=== PATIENT | female | born 1980 ===

== ENCOUNTER 2016-12-19 20:52 | Emergency (ER) | payer OTHER ==
[2016-12-19 20:52] VITALS: BMI 28.3
[2016-12-19 21:18] VITALS: RESP 20
[2016-12-19 21:50] LABS: RBC URINE < 1 /hpf (0-3); URINE BILIRUBIN NEGATIVE (NEGATIVE); URINE BLOOD NEGATIVE (NEGATIVE); URINE COLOR Straw (YELLOW); URINE GLUCOSE (UA) NORMAL (Normal); URINE KETONE NEGATIVE (NEGATIVE); URINE LEUKOCYTE ESTERASE NEG Leu/uL (Negative); URINE PROTEIN NEGATIVE (NEGATIVE); URINE UROBILINOGEN NORMAL mg/dL (0.2-1.0); WBC URINE < 1 /hpf (0-5)
[2016-12-19] MEDS ORDERED: Sodium Chloride 0.9% 1,000 ML IV ONE (22:47)
[2016-12-19] MEDS ORDERED: DiphenhydrAMINE 50 mg/ml Inj IVP STA (22:48)
--- NOTE | 2016-12-19 22:55 | C.PDOC ---
History Of Present Illness 36 year old female presents to the ED with complaints of left flank pain starting earlier today. pt also reports a puritic rash to b/l upper arms. no new lotions creams detergents, known allergens Patient states she has associated nausea and denies vomiting, hematuria, dysuria, fever, chills, or any other complaints at this time. Time Seen by Provider: 12/19/16 22:39 Chief Complaint (Nursing): Female Genitourinary History Per: Patient History/Exam Limitations: no limitations Onset/Duration Of Symptoms: Hrs Current Symptoms Are (Timing): Still Present Severity: Mild Past Medical History Reviewed: Historical Data, Nursing Documentation, Vital Signs Vital Signs: Last Vital Signs Temp 97.3 F L 12/20/16 01:33 Pulse 87 12/20/16 01:33 Resp 20 12/20/16 01:33 BP 105/63 12/20/16 01:33 Pulse Ox 99 12/20/16 01:33 Family History: States: Unknown Family Hx - Social History Hx Tobacco Use: No Hx Alcohol Use: No Hx Substance Use: No - Immunization History Hx Tetanus Toxoid Vaccination: No Hx Influenza Vaccination: No Hx Pneumococcal Vaccination: No Review Of Systems Except As Marked, All Systems Reviewed And Found Negative. Constitutional: Negative for: Fever, Chills Gastrointestinal: Positive for: Nausea. Negative for: Vomiting, Abdominal Pain , Diarrhea Genitourinary: Positive for: Other (+Left flank pain). Negative for: Dysuria, Frequency, Hematuria Skin: Negative for: Rash Physical Exam - Physical Exam Appears: Non-toxic, No Acute Distress Skin: Normal Color, Warm, Dry Head: Atraumatic, Normacephalic Eye(s): bilateral: Normal Inspection Oral Mucosa: Moist Chest: Symmetrical, No Deformity Cardiovascular: Rhythm Regular Respiratory: Normal Breath Sounds, No Accessory Muscle Use Gastrointestinal/Abdominal: Soft, Tenderness (+LLQ tenderness), No Distention, No Guarding, No Rebound Back: CVA Tenderness (+Left CVA tenderness) Neurological/Psych: Oriented x3, Normal Speech, Normal Cognition ED Course And Treatment - Laboratory Results Result Diagrams: 12/19/16 22:57 12/19/16 22:57 O2 Sat by Pulse Oximetry: 96 (Room air) Pulse Ox Interpretation: Normal - CT Scan/US CT Abd/Pel Other Rad Studies (CT/US): Interpreted By Me, Read By Radiologist CT/US Interpretation: EXAM: US Pelvis Complete. CLINICAL HISTORY: 36 years old, female; Abnormal findings; Abnormal imaging test; Additional info: Left adexal ttp. TECHNIQUE: Real-time pelvic ultrasound (complete) with image documentation. COMPARISON: No relevant prior studies available. FINDINGS: Uterus/cervix: The uterus measures 10.9 x 4.4 x 5.3 cm. The endometrial stripe measures 0.87 cm. in thickness. No myometrial mass. Right ovary: The right ovary measures 2.7 x 1.8 x 2.6 cm. Normal blood flow. Left ovary: The left ovary measures 3.7 x 2.8 x 3.7 cm. Normal blood flow. Free fluid: No free fluid. IMPRESSION: No acute findings. EXAM: US Pelvis, Transvaginal. CLINICAL HISTORY: 36 years old, female; Abnormal findings; Abnormal imaging test; Additional info: Left adexal ttp. TECHNIQUE:Real-time transvaginal pelvic ultrasound (complete) with image documentation. Transvaginal. imaging was used for better evaluation of the endometrium and adnexa. COMPARISON: No relevant prior studies available. FINDINGS: Uterus/cervix: The uterus measures 8.3 x 4.6 x 5.7 cm. The endometrial stripe measures 1.1 cm in. thickness. Nabothian cysts are incidentally noted. No myometrial mass. Right ovary: The right ovary measures 2.7 x 1.9 x 2.6 cm. Normal blood flow. Left ovary: The left ovary is not clearly visualized on transvaginal images. Free fluid: No free fluid. IMPRESSION: No acute findings. Pelvis US Other Rad Studies (CT/US): Read By Radiologist, Radiology Report Reviewed CT/US Interpretation: EXAM: US Pelvis Complete. CLINICAL HISTORY: 36 years old, female; Abnormal findings; Abnormal imaging test; Additional info: Left adexal ttp. TECHNIQUE: Real-time pelvic ultrasound (complete) with image documentation. COMPARISON: No relevant prior studies available. FINDINGS: Uterus/cervix: The uterus measures 10.9 x 4.4 x 5.3 cm. The endometrial stripe measures 0.87 cm. in thickness. No myometrial mass. Right ovary: The right ovary measures 2.7 x 1.8 x 2.6 cm. Normal blood flow. Left ovary: The left ovary measures 3.7 x 2.8 x 3.7 cm. Normal blood flow. Free fluid: No free fluid. IMPRESSION: No acute findings. . EXAM: US Pelvis, Transvaginal. CLINICAL HISTORY: 36 years old, female; Abnormal findings; Abnormal imaging test; Additional info: Left adexal ttp. TECHNIQUE: Real-time transvaginal pelvic ultrasound (complete) with image documentation. Transvaginal imaging was used for better evaluation of the endometrium and adnexa. COMPARISON: No relevant prior studies available. FINDINGS: Uterus/cervix: The uterus measures 8.3 x 4.6 x 5.7 cm. The endometrial stripe measures 1.1 cm in thickness. Nabothian cysts are incidentally noted. No myometrial mass. Right ovary: The right ovary measures 2.7 x 1.9 x 2.6 cm. Normal blood flow. Left ovary: The left ovary is not clearly visualized on transvaginal images. Free fluid: No free fluid. IMPRESSION: No acute findings. Medical Decision Making Medical Decision Making: Plan: -CT ABD & Pelvis w/o contrast -Blood work -Urinalysis -Benadryl -Toradol -Zofran -IV fluids -Reassess Progress: 107: pt reassesed. pain improved. rash resolved. noted luekocytosis. ua, ct, US neg, no pulm complaints. advised outpt f/u and return precautions Disposition - Disposition Referrals: Victor M Copeland MD [Staff Provider] - [facility] [Outside] [facility], [facility] Service [Outside] Disposition: HOME/ ROUTINE Disposition Time: 01:08 Condition: STABLE Additional Instructions: please see clinic and specialist. return to er with worsening symptoms or concerns. discuss results of your blood count with pmd, and specialist. Instructions: Acute Abdominal Pain (ED), Leukocytosis (ED) Forms: Work/School/Gym Excuse - Clinical Impression Clinical Impression: Abdominal pain, Leukocytosis - Scribe Statement The provider has reviewed the documentation as recorded by the Scribe Angelica Knowles. Provider Attestation: All medical record entries made by the Scribe were at my direction and personally dictated by me. I have reviewed the chart and agree that the record accurately reflects my personal performance of the history, physical exam, medical decision making, and the department course for this patient. I have also personally directed, reviewed, and agree with the discharge instructions and disposition.
[2016-12-19] MEDS ORDERED: Sodium Chloride 0.9% 1,000 ML ONE (22:58)
[2016-12-19] MEDS ORDERED: DiphenhydrAMINE 50 mg/ml Inj ONE (22:59)
[2016-12-19 23:00] LABS: BASO % 0.3 % (0.0-2.0); EOS # 0.1 K/uL (0.0-0.7); EOS % 0.9 % (0.0-4.0); HEMATOCRIT 35.6 % (34.0-47.0); LYMPH # 2.8 K/uL (1.0-4.3); LYMPH % 18.8 % (20.0-40.0); MEAN CELL VOLUME 86.8 fL (81.0-99.0); MEAN CORPUSCULAR HEMOGLOBIN 28.5 pg (27.0-31.0); MEAN CORPUSCULAR HGB CONC 32.8 g/dL (33.0-37.0); MEAN PLATELET VOLUME 9.5 fL (7.2-11.7); MONO # 0.8 K/uL (0.0-0.8); MONO % 5.4 % (0.0-10.0); RED CELL DISTRIBUTION WIDTH 13.2 % (11.5-14.5); WHITE BLOOD COUNT 14.9 K/uL (4.8-10.8)
[2016-12-19 23:10] LABS: CHLORIDE 99 mmol/L (98-107); SODIUM 136 mmol/L (132-148)
[2016-12-19 23:11] LABS: POTASSIUM 3.8 mmol/L (3.6-5.2)
[2016-12-19 23:12] LABS: GFR AFRICAN-AMERICAN > 60
[2016-12-19 23:13] LABS: ALB/GLOB RATIO 1.2 (1.0-2.1); ALKALINE PHOSPHATASE 68 U/L (38-126); ALT/SGPT 57 U/L (9-52); AST/SGOT 34 U/L (14-36); BILIRUBIN,TOTAL 0.2 mg/dL (0.2-1.3); BLOOD UREA NITROGEN 16 mg/dL (7-17); CALCIUM 8.7 mg/dl (8.6-10.4); CARBON DIOXIDE 21 mmol/L (22-30); GLUCOSE,RANDOM 113 mg/dL (65-105); TOTAL PROTEIN 7.5 g/dL (6.3-8.3)
[2016-12-20 01:34] VITALS: BP 105/63; PULSE 87; TEMP 97.3
--- NOTE | 2016-12-20 08:55 | US ---
HISTORY: left adexal ttp COMPARISON: None available. TECHNIQUE: Transabdominal and transvaginal pelvic ultrasound was performed. FINDINGS: UTERUS: Measures 9.6 x 4.4 x 5.5 cm. Anteverted, normal in size and appearance. No fibroid or other mass lesion seen. ENDOMETRIUM: Measures 10 mm in diameter. Unremarkable. CERVIX: Nabothian cysts are visualized. RIGHT OVARY: Measures 2.7 x 1.8 x 2.5 cm. No solid mass. Normal flow. LEFT OVARY: The left ovary is only visualized on transabdominal imaging. Measures 3.3 x 2.0 x 3.4 cm. No solid mass. Normal flow. FREE FLUID: No significant free fluid noted. OTHER FINDINGS: None. IMPRESSION: The left ovary is only visualized on transabdominal imaging. Allowing for this, no evidence of ovarian or adnexal mass. No evidence of fibroid uterus. A preliminary report was provided by [employer] [facility].
--- NOTE | 2016-12-20 09:01 | CT ---
PROCEDURE: CT Abdomen and Pelvis without intravenous contrast HISTORY: left flank pain COMPARISON: Comparison is made to the previous study dated 10/04/2016. TECHNIQUE: Axial and reformatted coronal and sagittal CT images of the abdomen and pelvis were obtained without IV or oral contrast administration.. Contrast Dose: 0 Radiation dose: Total exam DLP = 591.84 mGy-cm. FINDINGS: LOWER THORAX: Unremarkable. LIVER: Mild hepatomegaly with findings suggestive of mild steatosis are again seen. GALLBLADDER AND BILE DUCTS: Unremarkable. PANCREAS: Unremarkable. No gross lesion or ductal dilatation. SPLEEN: Unremarkable. ADRENALS: Unremarkable. No mass. KIDNEYS AND URETERS: No evidence of nephrolithiasis or hydronephrosis. Suspicious for punctate calcification at the mid to upper poor right kidney. No evidence of significant perinephric stranding VASCULATURE: Unremarkable. No aortic aneurysm. BOWEL: Unremarkable. No obstruction. No gross mural thickening. Mild constipation is noted. APPENDIX: Unremarkable. Normal appendix. PERITONEUM: Trace free fluid in the pelvis likely physiological. Otherwise no evidence of ascites or free air in the abdomen. LYMPH NODES: Unremarkable. No enlarged lymph nodes. BLADDER: Unremarkable. REPRODUCTIVE: Mildly enlarged adnexa seen bilaterally. Small cystic formation seen in both adnexal. BONES: No acute fracture. OTHER FINDINGS: None. IMPRESSION: No evidence of obstructing stone or hydronephrosis. Questionable punctate calcification at the mid to upper pole right kidney. No evidence of acute pathology in the abdomen and pelvis. Mild hepatomegaly and mild steatosis again noted. Mildly enlarged bilateral adnexal cystic formations. If indicated further assessment by ultrasound may be obtained. Preliminary report was submitted by [facility]
[2016-12-20 16:45] VITALS: O2SAT 96
== END 2016-12-20 01:35 | disposition home or self-care (01) ==
LOC: C.ER 20:52
DX: R10.32 Left lower quadrant pain (principal); D72.829 Elevated white blood cell count, unspecified
CPT/HCPCS: 74176; 76830; 76856; 80053; 81001; 83690; 84703; 85025; 85610; 85730; 96361; 96374; 96375; 99285; J1200; J1885; J2405; J7040

== ENCOUNTER 2017-01-10 18:20 | Emergency (ER) | payer OTHER ==
[2017-01-10 18:29] VITALS: O2SAT 100
[2017-01-10 19:08] LABS: CHLORIDE 99 mmol/L (98-107)
[2017-01-10 19:09] LABS: POTASSIUM 4.1 mmol/L (3.6-5.2); SODIUM 138 mmol/L (132-148)
[2017-01-10 19:11] LABS: ALB/GLOB RATIO 1.2 (1.0-2.1); ALKALINE PHOSPHATASE 60 U/L (38-126); ALT/SGPT 62 U/L (9-52); AST/SGOT 67 U/L (14-36); BILIRUBIN,TOTAL 0.6 mg/dL (0.2-1.3); BLOOD UREA NITROGEN 10 mg/dL (7-17); CARBON DIOXIDE 23 mmol/L (22-30); GFR AFRICAN-AMERICAN > 60; TOTAL PROTEIN 8.2 g/dL (6.3-8.3)
[2017-01-10 19:12] LABS: CALCIUM 8.6 mg/dl (8.6-10.4); GLUCOSE,RANDOM 108 mg/dL (65-105)
[2017-01-10 19:29] LABS: BASO % 0.4 % (0.0-2.0); EOS # 0.1 K/uL (0.0-0.7); EOS % 1.2 % (0.0-4.0); HEMATOCRIT 36.7 % (34.0-47.0); LYMPH # 0.6 K/uL (1.0-4.3); LYMPH % 9.5 % (20.0-40.0); MEAN CELL VOLUME 87.2 fL (81.0-99.0); MEAN CORPUSCULAR HEMOGLOBIN 28.9 pg (27.0-31.0); MEAN CORPUSCULAR HGB CONC 33.1 g/dL (33.0-37.0); MEAN PLATELET VOLUME 9.9 fL (7.2-11.7); MONO # 0.7 K/uL (0.0-0.8); MONO % 12.2 % (0.0-10.0); PLATELET COUNT 251 K/uL (130-400); RED CELL DISTRIBUTION WIDTH 13.1 % (11.5-14.5); WHITE BLOOD COUNT 6.2 K/uL (4.8-10.8)
[2017-01-10] MEDS ORDERED: Sodium Chloride 0.9% 1,000 ML IV ONE (19:30)
[2017-01-10 19:31] LABS: URINE BILIRUBIN NEGATIVE (NEGATIVE); URINE BLOOD NEGATIVE (NEGATIVE); URINE COLOR Colorless (YELLOW); URINE GLUCOSE (UA) NORMAL (Normal); URINE KETONE NEGATIVE (NEGATIVE); URINE LEUKOCYTE ESTERASE NEG Leu/uL (Negative); URINE PROTEIN NEGATIVE (NEGATIVE); URINE UROBILINOGEN NORMAL mg/dL (0.2-1.0)
[2017-01-10 20:02] LABS: EOSINOPHIL 1 % (0-4); NEUTROPHIL 83 % (50-75); TOTAL CELLS COUNTED 100
[2017-01-10 20:03] LABS: LARGE PLATELETS PRESENT
--- NOTE | 2017-01-10 20:12 | C.PDOC ---
History Of Present Illness 36 y/o female, no PMHx, presents to ED with c/o flu like symptoms since. Patient reports fever started yesterday, with sore throat, sinus pressure, dry cough, body aches, headaches, and nasal congestion onset this morning and worsening today. Patient reports 1 episode of non-bloody and non-bilious emesis this morning. Denies diarrhea, constipation, urinary symptoms, or other complaints. Patient reports her 2 year old child is sick at home as well. Denies recent travel. No relief with OTC medications (Tylenol). Temperature 103F recorded at home. Time Seen by Provider: 01/10/17 18:51 Chief Complaint (Nursing): Medical Clearance History Per: Patient History/Exam Limitations: no limitations Onset/Duration Of Symptoms: Days Current Symptoms Are (Timing): Still Present Recent travel outside of the [place]: No Past Medical History Reviewed: Historical Data, Nursing Documentation, Vital Signs Vital Signs: Last Vital Signs Temp 103.0 F H 01/10/17 18:23 Pulse 130 H 01/10/17 18:23 Resp 20 01/10/17 18:23 BP 105/73 01/10/17 18:23 Pulse Ox 100 01/10/17 20:11 - Medical History PMH: No Chronic Diseases Family History: States: Unknown Family Hx - Social History Hx Tobacco Use: No Hx Alcohol Use: No Hx Substance Use: No - Immunization History Hx Tetanus Toxoid Vaccination: No Hx Influenza Vaccination: No Hx Pneumococcal Vaccination: No Review Of Systems Except As Marked, All Systems Reviewed And Found Negative. Constitutional: Positive for: Fever, Weakness ENT: Positive for: Nose Congestion, Throat Pain. Negative for: Ear Pain Cardiovascular: Negative for: Chest Pain Respiratory: Positive for: Cough. Negative for: Sputum, Wheezing Gastrointestinal: Positive for: Vomiting. Negative for: Abdominal Pain, Diarrhea Skin: Negative for: Rash Neurological: Positive for: Headache. Negative for: Dizziness Physical Exam - Physical Exam Appears: Non-toxic, No Acute Distress (but appears uncomfortable) Skin: Normal Color, Warm, Dry Head: Atraumatic, Normacephalic Eye(s): bilateral: Normal Inspection (with conjunctival injection), PERRL, EOMI Ear(s): Bilateral: Normal Nose: Normal Oral Mucosa: Moist Throat: Normal, No Erythema, No Exudate Neck: Supple Chest: Symmetrical Cardiovascular: Rhythm Regular, No Murmur Respiratory: Normal Breath Sounds (with hackinig cough), No Rales, No Rhonchi, No Wheezing Gastrointestinal/Abdominal: Soft, No Tenderness, No Guarding, No Rebound Back: Normal Inspection Extremity: Normal ROM, Capillary Refill (< 2 sec. ) Neurological/Psych: Oriented x3, Normal Speech, Normal Cognition ED Course And Treatment - Laboratory Results Result Diagrams: 01/10/17 18:57 01/10/17 18:57 Lab Interpretation: No Acute Changes O2 Sat by Pulse Oximetry: 100 (RA) Pulse Ox Interpretation: Normal - Radiology CXR: Interpreted by Me CXR Interpretation: Yes: No Acute Disease Reevaluation Time: 20:59 Reassessment Condition: Unchanged (Patient still uncomfortable with flu-like symptoms. Hacking cough but no shortness of breath.) Disposition - Disposition Disposition: HOME/ ROUTINE Disposition Time: 21:06 Condition: STABLE Instructions: Influenza (ED) Print Language: MALAY - Clinical Impression Clinical Impression: Influenza-like symptoms - Scribe Statement The provider has reviewed the documentation as recorded by the Karolina Araujo Provider Scribe Attestation: All medical record entries made by the Scribeulalia were at my direction and personally dictated by me. I have reviewed the chart and agree that the record accurately reflects my personal performance of the history, physical exam, medical decision making, and the department course for this patient. I have also personally directed, reviewed, and agree with the discharge instructions and disposition.
[2017-01-10 21:43] VITALS: BP 127/78; PULSE 114; RESP 18; TEMP 99.8
--- NOTE | 2017-01-11 11:21 | RAD ---
HISTORY: cough and fever COMPARISON: Chest x-ray performed 09/02/16 TECHNIQUE: Chest PA and lateral FINDINGS: LUNGS: No focal consolidation. Please note that chest x-ray has limited sensitivity for the detection of pulmonary masses. PLEURA: No significant pleural effusion identified. No definite pneumothorax . CARDIOVASCULAR: The cardiomediastinal silhouette appears within normal limits of size. OSSEOUS STRUCTURES: No acute osseous abnormality identified. VISUALIZED UPPER ABDOMEN: Unremarkable. OTHER FINDINGS: None. IMPRESSION: No focal consolidation, significant pleural effusion, or definite pneumothorax identified.
== END 2017-01-10 21:40 | disposition home or self-care (01) ==
LOC: C.ER 18:20
DX: J11.1 Influenza due to unidentified influenza virus with other respiratory manifestations (principal)
CPT/HCPCS: 71020; 80053; 81001; 83605; 84703; 85025; 87040; 87804; 96361; 96374; 99283; J1885; J7040

== ENCOUNTER 2018-02-26 07:18 | Emergency (ER) | payer SELFPAY ==
[2018-02-26] MEDS ORDERED: Amoxicillin-Clav 875-125 mg Tab PO STA (08:35)
--- NOTE | 2018-02-26 08:36 | C.PDOC ---
History Of Present Illness 37 y/o female presents to the ER complaining of nasal congestion, runny nose, and frontal headache which gradually developed over the past 1 week. Pt is also c/o right earache which developed over the past 2 days. Otherwise, pt denies fever, chills, severe headache, dizziness, visual changes, ear discharges, drooling, neck pain, cough, CP, SOB, abd. pain, N/V, back pain. Ambulate to Ed for evaluation, not in any apparent distress. Time Seen by Provider: 02/26/18 07:35 Chief Complaint (Nursing): ENT Problem History Per: Patient History/Exam Limitations: None Onset/Duration Of Symptoms: Days Current Symptoms Are (Timing): Still Present Severity: Moderate Past Medical History Reviewed: Historical Data, Nursing Documentation, Vital Signs Vital Signs: Last Vital Signs Temp 98.1 F 02/26/18 09:16 Pulse 72 02/26/18 09:16 Resp 18 02/26/18 09:16 BP 114/79 02/26/18 09:16 Pulse Ox 100 02/26/18 09:21 - Medical History PMH: Denies: Asthma Other Surgeries: Hx of surgeries Family History: States: No Known Family Hx - Social History Hx Tobacco Use: No Hx Alcohol Use: No Hx Substance Use: No - Immunization History Hx Tetanus Toxoid Vaccination: No Hx Influenza Vaccination: No Hx Pneumococcal Vaccination: No Review Of Systems Except As Marked, All Systems Reviewed And Found Negative. Constitutional: Negative for: Fever, Chills Eyes: Negative for: Vision Change ENT: Positive for: Nose Discharge (runny nose), Nose Congestion, Other (right earache) Musculoskeletal: Negative for: Neck Pain Neurological: Positive for: Headache (frontal) Physical Exam - Physical Exam Appears: Well, Non-toxic, No Acute Distress Skin: Normal Color, Warm, Dry, No Rash Head: Normacephalic Eye(s): bilateral: PERRL Ear(s): Left: Normal, Right: TM Dull Nose: No Flaring, Discharge (B/L congestion with scant clear rhinorrhea), No Deformity, No Tenderness, Other (R>L miaxilalry tenderness. No edema, no erythema.) Oral Mucosa: Moist, No Drooling Tongue: Normal Appearing Lips: Normal Appearing Throat: No Erythema, No Drooling Neck: Trachea Midline, Supple, Other ((-) meningeal sign) Lymphatic: Adenopathy (mild R>L submandibular) Cardiovascular: Rhythm Regular, No Murmur Respiratory: No Decreased Breath Sounds, No Accessory Muscle Use, No Stridor, No Wheezing Gastrointestinal/Abdominal: Soft, No Tenderness, No Distention, No Guarding Back: No CVA Tenderness Extremity: Normal ROM, No Deformity, No Swelling Neurological/Psych: Oriented x3, Normal Speech ED Course And Treatment O2 Sat by Pulse Oximetry: 100 (RA) Pulse Ox Interpretation: Normal Progress Note: On re-eval, pt is afebrile, hemodynamicaly stable. NOn-toxic. Tolerate po well in ED. PulsEOx 100% RA. ENT: exam c/w Right otitis media, sinusitis. neck: SUpple, (-) meningeal sign. Lungs: CTA B/L, BS equal B/L. ABd: benign, (-) guarding, (-) rebound, (-) localized tenderness. Neurologicaly intact. Pt advised. ref. to f/u with PMD, ENT in 2-3 dyas for re -evaluation. return [facility] ED if any worsening or new changes. Disposition Counseled Patient/Family Regarding: Diagnosis, Need For Followup, Rx Given - Disposition Referrals: Rosales Lomeli MD [Staff Provider] - Disposition: HOME/ ROUTINE Disposition Time: 08:36 Condition: STABLE Additional Instructions: Encourage fluids Take medication as prescribed Follow up with PMD, ENT in 2-3 days for re-evaluation. Return to ED if any worsening or new changes. Prescriptions: Amoxicillin/Clavulanate [Augmentin 875 MG-125 MG] 1 tab PO BID #14 tab Ibuprofen [Motrin Tab] 600 mg PO BID #10 tab Prednisone [Deltasone] 40 mg PO DAILY #6 tablet Instructions: Sinusitis in Adults, Serous Otitis Media Forms: [employer] (Comoran), Work Excuse Print Language: FINNISH - Clinical Impression Clinical Impression: Serous otitis media, Sinusitis - PA / PHYSICAL THERAPIST ASSISTANT / Resident Statement MD/DO has reviewed & agrees with the documentation as recorded. - Scribe Statement The provider has reviewed the documentation as recorded by the Karolina Bui Provider Attestation All medical record entries made by the Clydeibe were at my direction and personally dictated by me. I have reviewed the chart and agree that the record accurately reflects my personal performance of the history, physical exam, medical decision making, and the department course for this patient. I have also personally directed, reviewed, and agree with the discharge instructions and disposition.
[2018-02-26] MEDS ORDERED: Amoxicillin-Clav 875-125 mg Tab PO ONE (09:06)
[2018-02-26 09:17] VITALS: BP 114/79; PULSE 72; RESP 18; TEMP 98.1
[2018-02-26 09:20] VITALS: O2SAT 100
== END 2018-02-26 09:17 | disposition home or self-care (01) ==
LOC: C.ER 07:18
DX: J32.9 Chronic sinusitis, unspecified (principal); H65.91 Unspecified nonsuppurative otitis media, right ear